=== PATIENT | male | born 1945 | race Caucasian/White ===

== ENCOUNTER → 2017-05-04 | Outpatient (CLI) | payer OTHER ==
[2015-09-25 08:58] VITALS: BP 118/63
--- NOTE | 2017-05-04 11:14 | PCVCIMAG ---
APPROVED REPORT Indications Stenosis Doppler Spectral Velocity Analysis PSV / EDVPSV / EDV ECA (R) 112 / 13 cm/sECA (L) 132 / 17 cm/s dICA (R) 70 / 18 cm/sdICA (L) 78 / 30 cm/s Sheila (R) 78 / 22 cm/smICA (L) 74 / 21 cm/s pICA (R) 82 / 18 cm/spICA (L) 70 / 14 cm/s Bulb (R) 82 / 18 cm/sBulb (L) 84 / 18 cm/s dCCA (R) 104 / 19 cm/sdCCA (L) 74 / 15 cm/s mCCA (R) 108 / 22 cm/smCCA (L) 99 / 20 cm/s Vert (R) 49 / 10 cm/sVert (L) 52 / 9 cm/s ICA/CCA ICA/CCA Findings The right carotid bulb has moderate plaque. The right proximal internal carotid artery shows <40% stenosis. The right common carotid artery shows no significant stenosis. The right external carotid artery shows no significant stenosis. The left carotid bulb has moderate calcified plaque. The left proximal internal carotid artery shows <40% stenosis. The left common carotid artery shows no significant stenosis. The left external carotid artery shows no significant stenosis. Conclusion 1. Right internal carotid artery stenosis (<40%) 2. Left internal carotid artery stenosis (<40%) 3. Antegrade vertebral flow
--- NOTE | 2017-05-04 18:43 | PCVCIMAG ---
APPROVED REPORT Exam: Stress Echocardiogram Indication: CAD , CAD s/p PCI, Hypertension Patient Location: Echo lab Stress Nurse: Karuna Connor RN Status: routine Ht: 5 ft 9 in HR: 71 bpm BP: 128/60 mmHg Rhythm: NSR Procedure The patient underwent an Exercise Stress Test using the Lloyd Protocol. Blood pressure, heart rate, and EKG were monitored. An Echocardiogram was performed by electrical and instrument technician in four stages in quad fashion. At peak stress, four selected images were obtained and placed side by side with resting images for comparison. Stress Test Details Stress Test: Exercise stress testing was performed using a Lloyd protocol. HR Resting HR: 71 bpmMax Heart Rate (APMHR): 148 bpm Max HR Achieved: 153 bpmTarget HR (85% APMHR): 125 bpm % of APMHR: 103 Recovery HR: 90 bpm HR response to stress: Normal HR response to stress BP Resting BP: 128/60 mmHg Max BP: 190/90 mmHg Recovery BP: 144/78 mmHg ECG Resting ECG: Sinus Rhythm Stress ECG: Sinus Rhythm ST Change: Normal Arrhythmia: None Recovery ECG: Sinus Rhythm Recovery ST Change: Normal Recovery Arrhythmia: None Clinical Reason for Termination: Maximal effort, Dyspnea Stress Symptoms: Dyspnea Exercise duration: 6 min sec Highest Stage Achieved: Stage 2: 2.5 mph at 12% grade. Exercise capacity: 7 METs Overall Exercise Capacity for Age: Average Pre-Stress Echo The resting Echocardiogram showed normal left ventricular contractility with an estimated Ejection Fraction of about >55%. Normal wall motion in all segments on baseline images. Post-Stress Echo The stress Echocardiogram showed normal left ventricular contractility with an estimated Ejection Fraction of about 65%. Normal augmentation of wall motion in all segments on post stress images. Clinical No clinical or ECG evidence for ischemia. Conclusion Clinical Response: Non-ischemic Exercise Capacity: Average Stress ECG Response: Non-ischemic Stress Echo Images: Non-ischemic The left ventricle is normal in size and wall thickness in both the rest and stress images. Other Information Study Quality: Adequate <Conclusion> The left ventricle is normal in size and wall thickness in both the rest and stress images.
== END | disposition home or self-care (01) ==
LOC: PCVCIMAG 09:24
PROVIDERS: ATTEND Internal Medicine Cardiovascular Disease
DX: I65.23 Occlusion and stenosis of bilateral carotid arteries (principal); I25.10 Atherosclerotic heart disease of native coronary artery without angina pectoris; E78.2 Mixed hyperlipidemia; I10 Essential (primary) hypertension; Z85.3 Personal history of malignant neoplasm of breast; Z95.1 Presence of aortocoronary bypass graft; Z87.891 Personal history of nicotine dependence; Z79.82 Long term (current) use of aspirin
CPT/HCPCS: 93325; 93351; 93880

== ENCOUNTER → 2018-01-25 | Outpatient (CLI) | payer OTHER | END | disposition home or self-care (01) | LOC: PCVCCLINIC 13:19 | DX: I25.10 Atherosclerotic heart disease of native coronary artery without angina pectoris (principal); I77.9 Disorder of arteries and arterioles, unspecified; I10 Essential (primary) hypertension; E78.2 Mixed hyperlipidemia; Z79.82 Long term (current) use of aspirin; Z87.891 Personal history of nicotine dependence | CPT/HCPCS: 80061; 93005; G0463 ==

== ENCOUNTER → 2019-02-10 | Outpatient (CLI) | payer OTHER ==
[2015-09-25 08:58] VITALS: BP 118/63
--- NOTE | 2019-02-12 09:49 | PCVCIMAG ---
APPROVED REPORT Study performed: 02/10/2019 13:04:08 Exam: Stress Echocardiogram Indication: CAD s/p PCI,Stent to LAD, Patient Location: Echo lab Stress Nurse: Belle Fuller RN Room #: 2 Status: routine Ht: 5 ft 9 in HR: 64 bpm BP: 142/74 mmHg Rhythm: NSR Medical History Medical History: breast Ca,CAD,DM Cardiac Risk Factors: DM Previous Cardiac Procedures: PCI Pretest Chest Pain Characteristics: No chest pain Exercise History: Sedentary Procedure The patient underwent an Exercise Stress Test using the Lloyd Protocol. Blood pressure, heart rate, and EKG were monitored. An Echocardiogram was performed by refurbish technician in four stages in quad fashion. At peak stress, four selected images were obtained and placed side by side with resting images for comparison. Stress Test Details Stress Test: Exercise stress testing was performed using a Lloyd protocol. HR Resting HR: 64 bpmMax Heart Rate (APMHR): 147 bpm Max HR Achieved: 162 bpmTarget HR (85% APMHR): 124 bpm % of APMHR: 110 Recovery HR: 100 bpm HR response to stress: Normal HR response to stress BP Resting BP: 142/74 mmHg Max BP: 185/78 mmHg Recovery BP: 142/78 mmHg BP response to stress: Normal blood pressure response to stress. ECG Resting ECG: Sinus Rhythm Stress ECG: Sinus Rhythm, NSSTT changes ST Change: Non-ischemic Maximum ST Deviation: -1.35 mm Arrhythmia: Occasional PVCs, PVC couplets Recovery ECG: Sinus Rhythm Recovery ST Change: Non-ischemic Recovery ST Deviation: -0.35 mm Recovery Arrhythmia: Rare PAC,PVC Clinical Reason for Termination: Maximal effort Stress Symptoms: fatigue Exercise duration: 5 min 38 sec Highest Stage Achieved: Stage 2: 2.5 mph at 12% grade. Exercise capacity: 7.0 METs Overall Exercise Capacity for Age: Poor Scale: Sedentary Angina Score: None No complications. Stress ECG Conclusion The patient exercised according to the LLOYD protocol for 5:38 mins; achieving a work level of 7.0 METS. The resting heart rate of 64 bpm jazz to a maximum heart rate of 171 bpm. This value represent 116% of the maximal, age-predicted heart rate. The resting blood pressure of 142/74 mmHg, jazz to a maximum blood pressure of 185/78 mmHg. The exercise test was stopped due to fatigue,dyspnea. Griggs Treadmill Score is 11.8 which is Low risk. Pre-Stress Echo The resting Echocardiogram showed normal left ventricular contractility with an estimated Ejection Fraction of about 55-60%. Normal wall motion in all segments on baseline images. Post-Stress Echo The stress Echocardiogram showed normal left ventricular contractility with an estimated Ejection Fraction of about 65-70%. Normal augmentation of wall motion in all segments on post stress images. Clinical No clinical or ECG evidence for ischemia. Conclusion Clinical Response: Non-ischemic Exercise Capacity: Below Average Stress ECG Response: Non-ischemic Stress Echo Images: Non-ischemic No clinical, EKG or echocardiographic evidence for ischemia. No echocardiographic evidence for exercise induced ischemia. Normal stress echocardiogram with maximal exercise stress. <Conclusion> No clinical, EKG or echocardiographic evidence for ischemia. No echocardiographic evidence for exercise induced ischemia. Normal stress echocardiogram with maximal exercise stress.
== END | disposition home or self-care (01) ==
LOC: PCVCIMAG 12:44
PROVIDERS: ATTEND Internal Medicine Cardiovascular Disease
DX: I25.10 Atherosclerotic heart disease of native coronary artery without angina pectoris (principal); I10 Essential (primary) hypertension; I77.9 Disorder of arteries and arterioles, unspecified; E78.2 Mixed hyperlipidemia
CPT/HCPCS: 93325; 93351